=== PATIENT | female | born 1945 | race Hispanic/Latino ===

== ENCOUNTER 2020-07-15 13:55 | Observation (INO) | payer OTHER ==
[~2020-07-15] VITALS: Ht 147.3 cm; Wt 49.2 kg
[2020-07-15 14:23] LABS: BASOPHILS % (AUTO) 0.8 % (0.0-5.0); HEMATOCRIT 32.3 % (36-48); LYMPHOCYTES % (AUTO) 18.3 % (21.0-51.0); MEAN CORPUSCULAR HEMOGLOBIN 31.5 pg (27.0-33.0); MEAN CORPUSCULAR HGB CONC 33.1 g/dL (32.0-36.0); MONOCYTES % (AUTO) 4.4 % (3.0-13.0); NEUTROPHILS % (AUTO) 75.2 % (40.0-77.0); PLATELET COUNT (AUTO) 279 K/uL (130-400); RED CELL DISTRIBUTION WIDTH 12.7 % (11.0-15.5); WHITE BLOOD COUNT (AUTO) 7.3 K/uL (4.8-10.8)
[2020-07-15 14:38] LABS: CREATININE 1.4 mg/dL (0.5-1.5); POTASSIUM 3.9 mmol/L (3.5-5.1)
[2020-07-15 14:41] LABS: INR 0.96 (0.85-1.15); PROTHROMBIN TIME 10.5 SEC (9.6-11.6)
[2020-07-15 14:42] LABS: PARTIAL THROMBOPLASTIN TIME 21.9 SEC (26.3-35.5)
[2020-07-15 14:43] LABS: ALBUMIN 3.8 g/dL (3.5-5.0); BILIRUBIN,TOTAL 0.5 mg/dL (0.2-1.0); TOTAL PROTEIN, SERUM 7.7 g/dL (6.0-8.3)
[2020-07-15 14:48] LABS: APPEARANCE,URINE CLEAR (CLEAR); BILIRUBIN,URINE SMALL (NEGATIVE); COLOR,URINE YELLOW (YELLOW); GLUCOSE, URINE (UA) NEGATIVE (NEGATIVE); KETONES,URINE 5 mg/dL (NEGATIVE); LEUKOCYTE ESTERASE ,URINE NEGATIVE (NEGATIVE); NITRATE,URINE NEGATIVE (NEGATIVE); OCCULT BLOOD,URINE NEGATIVE (NEGATIVE); PH,URINE 5.5 (5.0-8.0); PROTEIN,URINE 100 mg/dL (NEGATIVE); UROBILINOGEN,URINE 0.2 mg/dL (0.2-1.0)
[2020-07-15 14:57] LABS: AMPHET/METH SCREEN,URINE NEGATIVE (NEGATIVE); BACTERIA,URINE Few /HPF (None Seen); BARBITURATE SCREEN, URINE NEGATIVE (NEGATIVE); BENZODIAZEPINES SCREEN,URINE NEGATIVE (NEGATIVE); CANNABINOID SCREEN,URINE POSITIVE (NEGATIVE); COCAINE SCREEN,URINE NEGATIVE (NEGATIVE); HYALINE CASTS, URINE 0-1 /LPF (0-1 /LPF); OPIATE SCREEN,URINE NEGATIVE (NEGATIVE); PHENCYCLIDINE SCREEN,URINE NEGATIVE (NEGATIVE); RBC,URINE None Seen /HPF (0-1); SQUAMOUS EPITHELIAL CELL,UR 0-2 /HPF (0-2); WBC,URINE 0-1 /HPF (0-1)
[2020-07-15] MEDS: ENOXAPARIN SODIUM 30 MG/0.3 ML SQ SCH (19:03)
[2020-07-15] MEDS ORDERED: ENOXAPARIN SODIUM 30 MG/0.3 ML SQ ONE (20:59)
[2020-07-15] MEDS: INSULIN R PO SS1 SQ SCH (21:00)
[2020-07-16] VITALS (7 sets, daily range): BP systolic 132–219; BP diastolic 62–86
[2020-07-16] MEDS ORDERED: HYDR-4153 PO (03:02)
[2020-07-16] MEDS ORDERED: GABA-529 PO (03:02)
[2020-07-16] MEDS ORDERED: FERR324T4 PO (03:02)
[2020-07-16] MEDS ORDERED: CITA-106 PO (03:02)
[2020-07-16] MEDS ORDERED: ACET-66 PO (03:02)
[2020-07-16] MEDS ORDERED: LISI5TAB21 PO (03:02)
[2020-07-16] MEDS ORDERED: QUET50TA24 PO (03:02)
[2020-07-16] MEDS ORDERED: BACL10TA PO (03:02)
[2020-07-16] MEDS ORDERED: ROPI3TAB5 PO (03:02)
[2020-07-16] MEDS ORDERED: CARB-38 PO (03:02)
[2020-07-16] MEDS ORDERED: PANT40TA PO (03:02)
[2020-07-16] MEDS ORDERED: ATOR40TA71 PO (03:02)
[2020-07-16] MEDS ORDERED: ASPI-1197 PO (03:02)
[2020-07-16 05:29] LABS: HEMATOCRIT 33.1 % (36-48); MEAN CORPUSCULAR HEMOGLOBIN 30.8 pg (27.0-33.0); MEAN CORPUSCULAR HGB CONC 32.6 g/dL (32.0-36.0); MEAN CORPUSCULAR VOLUME 94.3 fL (79-99); RED BLOOD CELL COUNT(AUTO) 3.51 MIL/uL (4.00-5.50); RED CELL DISTRIBUTION WIDTH 12.6 % (11.0-15.5); WHITE BLOOD COUNT (AUTO) 6.6 K/uL (4.8-10.8)
[2020-07-16 06:02] LABS: CARBON DIOXIDE 28 mmol/L (21-32); CHLORIDE 102 mmol/L (101-111); CREATINE KINASE, TOTAL 78 U/L (21-232); GLOMERULAR FILTR. RATE CALC 57 mL/min (>60); GLUCOSE,RANDOM 97 mg/dL (70-105); MYOGLOBIN 67 ng/mL (10-92); POTASSIUM 3.5 mmol/L (3.5-5.1); SODIUM SERUM 138 mmol/L (136-145); TROPONIN I < 0.04 ng/mL (0.00-0.06); UREA NITROGEN, BLOOD 35 mg/dL (7-18)
[2020-07-16] MEDS: INSULIN R PO SS1 SQ SCH ×4 (07:30→21:00)
[2020-07-16] MEDS: LEVETIRACETAM 500 MG TABLET PO SCH ×2 (10:55→22:56)
[2020-07-16] MEDS: ENOXAPARIN SODIUM 30 MG/0.3 ML SQ SCH (10:55)
[2020-07-17 04:32] VITALS: BP 160/69
[2020-07-17] MEDS: INSULIN R PO SS1 SQ SCH ×3 (06:35→16:30)
[2020-07-17 07:00] VITALS: BP_SYST 139; BP_SYST 142; BP_SYST 171; BP_DIAS 66; BP_DIAS 68; BP_DIAS 69
[2020-07-17] MEDS: LEVETIRACETAM 500 MG TABLET PO SCH (08:29)
[2020-07-17] MEDS: ENOXAPARIN SODIUM 30 MG/0.3 ML SQ SCH (08:30)
[2020-07-17] MEDS ORDERED: ASPIRIN 81MG CHEW TAB ONE (09:04)
[2020-07-17] MEDS ORDERED: ASPIRIN 81MG CHEW TAB PO SCH (10:16)
[2020-07-17] MEDS ORDERED: PINDOLOL 5 MG TAB PO SCH (10:30)
[2020-07-17 11:30] VITALS: BP_SYST 133; BP_SYST 154; BP_SYST 163; BP_DIAS 61; BP_DIAS 70; BP_DIAS 77
[2020-07-17 16:00] VITALS: BP_SYST 116; BP_SYST 134; BP_SYST 144; BP_DIAS 51; BP_DIAS 59; BP_DIAS 63
[2020-07-17] MEDS ORDERED: ATORVASTATIN 40 MG TABLET PO SCH (21:00)
== END 2020-07-17 17:25 | disposition home or self-care (01) ==
LOC: EDH 13:55 → INTOOBSV 17:48 → EDHIP 17:48 → OBSVTOIN 17:48 → 3BH 22:32
PROVIDERS: ADMIT Internal Medicine Infectious Disease; ATTEND Internal Medicine Infectious Disease
DX: R40.4 Transient alteration of awareness (principal); I10 Essential (primary) hypertension; G20 Parkinson's disease; E78.5 Hyperlipidemia, unspecified; D64.9 Anemia, unspecified; R53.1 Weakness; I25.10 Atherosclerotic heart disease of native coronary artery without angina pectoris; I95.89 Other hypotension; I69.393 Ataxia following cerebral infarction; M19.90 Unspecified osteoarthritis, unspecified site; F41.9 Anxiety disorder, unspecified; E78.00 Pure hypercholesterolemia, unspecified; Z90.710 Acquired absence of both cervix and uterus; Z90.49 Acquired absence of other specified parts of digestive tract; Z96.82 Presence of neurostimulator; Z79.899 Other long term (current) drug therapy
CPT/HCPCS: 36415 ×2; 70450; 80048; 80053; 80305; 81001; 82550; 82948 ×8; 83735; 83874; 84484 ×2; 85025; 85027; 85610; 85730; 93005; 96372 ×2; 99285; G0378 ×47; J1650 ×3